=== PATIENT | female | born 1955 | race Caucasian/White ===

== ENCOUNTER → 2018-05-24 12:05 | Outpatient (CLI) | payer BC, SELFPAY ==
[2018-05-24 16:23] LABS: Free T3 2.7 pg/mL (2.18-3.98); T4 Free Direct 0.86 ng/dL (0.76-1.46); Thyroid Stim Hormone (TSH) 1.35 uIU/mL (0.358-3.74)
[2018-05-24 16:34] LABS: Hemoglobin A1c 4.8 % (4.2-6.3)
[2018-05-26 10:52] LABS: DHEA Sulfate 99.9 ug/dL (29.4-220.5)
[2018-05-30 16:43] LABS: HPV Reflexed? NOT INDICATED
--- OUTSIDE RECORDS SUMMARY | 2018-07-29 04:10 | XMS RPT_ITS ---
:1955 Author Organization OHIP Care Team Providers Name Role Phone Chey Winter Admitting Unavailable Chey Winter Attending Unavailable Saldivar, Brendon Primary Care Unavailable Chey iWnter Referring Unavailable Saldivar, Brendon Primary Care Unavailable Becky Flores Admitting Unavailable Becky Flores Attending Unavailable Becky Flores Attending Unavailable Saldivar, Brendon Primary Care Unavailable Saldivar Brendon Attending Unavailable Saldivar, Brendon Primary Care Unavailable Saldivar, Brendon Admitting Unavailable Newbill, Get Mason Admitting Unavailable NewbillGet Attending Unavailable Saldivar, Brendon Primary Care Unavailable Newbill, Get Mason Admitting Unavailable Newbill, Get Mason Attending Unavailable Saldivar, Brendon Primary Care Unavailable Chey Winter Admitting Unavailable Chey Winter Attending Unavailable Saldivar, Brendon Primary Care Unavailable Chey Winter Attending Unavailable PROBLEMS PROBLEMS DATE TYPE CONDITION / CODE ATTENDING STATUS SOURCE 05/28/2018 Unknown Z12.4 - Chey Winter Active [place] Encounter for Community screening for Hospital malignant Repository neoplasm of cervix / Z12.4(ICD-10) PROCEDURES PROCEDURES No Procedure Records FoundRESULTS RESULTS FREE T3 Collected: 05/24/2018 Status: F Source: [facility] TYPE CODE TESTS RESULT OUT OF RANGE REFERENCE UNITS LAB L501.87231 2.18-3.98 pg/mL Normal FREE T3 2.7 Performed By: #### L501.78915, L501.9520, L506.0400 #### [facility] [address] [place], [address] THYROID STIM HORMONE Collected: 05/24/2018 Status: F Source: REN (TSH) 12:10 PM [facility] REPOSITORY TYPE CODE TESTS RESULT OUT OF RANGE REFERENCE UNITS LAB L501.9520 0.358-3.74 uIU/mL Normal TSH 1.35 Performed By: #### L501.53131, L501.9520, L506.0400 #### [facility] [address] [place], [address] T4 FREE DIRECT Collected: 05/24/2018 Status: F Source: REN 12:10 PM [facility] REPOSITORY TYPE CODE TESTS RESULT OUT OF RANGE REFERENCE UNITS LAB L506.0400 0.76-1.46 ng/dL Normal T4 FREE 0.86 DIRECT Performed By: #### L501.83809, L501.9520, L506.0400 #### [facility] [address] [place], [address] CORTISOL SERUM Collected: 05/24/2018 Status: F Source: REN 12:10 PM [facility] REPOSITORY TYPE CODE TESTS RESULT OUT OF RANGE REFERENCE UNITS LAB L509.6000 3.09-22.40 ug/dL Normal CORTISOL 9.40 Result Comment: Adult (AM) 4.30 - 22.40 ug/dL Adult (PM) 3.09 - 16.66 ug/dL Performed By: #### L509.6000 #### [facility] [address] [place], [address] HEMOGLOBIN A1C Collected: 05/24/2018 Status: F Source: REN 12:10 PM [facility] REPOSITORY TYPE CODE TESTS RESULT OUT OF RANGE REFERENCE UNITS LAB L501.9985 4.2-6.3 % Normal HGB A1C 4.8 Performed By: #### L501.9985 #### [facility] [address] [place], [address] DHEA SULFATE Collected: 05/24/2018 Status: F Source: REN 12:10 PM [facility] REPOSITORY Order Comment: Has Patient had Radioactive Injection for X-ray?: N TYPE CODE TESTS RESULT OUT OF RANGE REFERENCE UNITS LAB L3300.1500 29.4-220.5 ug/dL Normal DHEA SULF 99.9 4020 Result Comment: Performed at: [facility] [id number] Front End Developer Designer: Desmond Eduardo PhD, Phone: [phone] Performed By: #### L3300.1500 #### [facility] (refer to report for specific site) refer to report for address and phone number PAP I-G W/RFX HRHPV Collected: 05/24/2018 Status: F Source: REN 11:45 AM [facility] REPOSITORY Order Comment: CYTOLOGY INFORMATION: - CLINICAL INFORMATION: POSTMENOPAUSAL - DATE LMP/MENOPAUSE: - COLLECTION VIAL: Thin Prep Vial - SOLE CUTTER SOURCE: CERVICAL/ENDOCERVICAL - COLLECTION TECHNIQUE: BRUSH/SPATULA Specimen Comment: [id number] Specimen Comment: Source.............Cervix;Endocervix Specimen Comment: Other..............Post Menopausal Specimen Comment: No. of containers..01 ThinPrep Vial TYPE CODE TESTS RESULT OUT OF RANGE REFERENCE UNITS LAB L7400.0800 . Normal DIAGN Comment Result Comment: NEGATIVE FOR INTRAEPITHELIAL LESION OR MALIGNANCY. CELLULAR CHANGES ASSOCIATED WITH ATROPHY ARE PRESENT. LAB L7400.0900 . Normal ADEQ Comment Result Comment: Satisfactory for evaluation. Endocervical component may not be distinguished in cases of atrophy. LAB L7400.1400 . Normal PERFORM Comment Result Comment: Annika Rollins, Service Unit Operator [employer] LAB L7400.2575 . Normal TEST METHOD Comment Result Comment: This liquid based ThinPrep(R) pap test was screened with the use of an image guided system. LAB L7400.2600 . Normal . COMM LAB L7400.2700 . Normal PAPSMR Comment Result Comment: The Pap smear is a screening test designed to aid in the detection of premalignant and malignant conditions of the uterine cervix. It is not a diagnostic procedure and should not be used as the sole means of detecting cervical cancer. Both false-positive and false-negative reports do occur. LAB L7400.2800 . Normal HPV RFLX Comment Result Comment: The HPV DNA reflex criteria were not met with this specimen result therefore, no HPV testing was performed. Performed at: - [facility] [place] [id number] Front End Developer Designer: Kiara Perales MD, Phone: [phone] Performed By: #### L7400.0350 #### [facility] (refer to report for specific site) refer to report for address and phone number CT ABDOMEN/PELVIS W/ Observed: 07/18/2017 Status: F Source: EPISCOPALIAN CONTRAST 7:45 PM [facility] REPOSITORY Exam Date/Time: 07/18/2017 20:12 EDT Reason for Exam: Abdominal Pain;Other (please specify) Report CT ABDOMEN/PELVIS W/ CONTRAST CLINICAL STATEMENT: 62-year-old female with lower abdominal and back pain. COMPARISON: Correlation is made with contrasted CT imaging of the abdomen and pelvis performed on 05/20/2017. TECHNIQUE: CT examination of the abdomen and pelvis following the administration of 100 mL Omnipaque 300 intravenous contrast. ?Coronal and sagittal reformations were performed. Dose reduction techniques were achieved by using automated exposure control and/or adjustment of mA and/or kV according to patient size and/or use of iterative reconstruction technique. FINDINGS: Liver is stable and unremarkable. There is some minimal focal fatty change adjacent to the falciform. A small cyst is noted in the superior aspect of the medial segment. Gallbladder is decompressed. There is no biliary ductal dilatation. Spleen is normal in size and configuration. The pancreas, adrenal glands, and kidneys demonstrate an unremarkable contrasted appearance. The colon is unremarkable. There are a few scattered diverticula along the sigmoid. No acute inflammation is identified. The appendix is again noted to be quite enlarged, measuring up to 1.2 cm in diameter. It was enlarged on previous exam on 05/20/2017 where it measured approximately a centimeter. There actually appears to be some hyperenhancement of the mucosa. There is some mild surrounding inflammatory change. Small bowel is normal in caliber and course. Stomach is decompressed. Uterus and adnexa demonstrate a age-appropriate appearance. There is no mass or adenopathy. No free air or free fluid is present. Bones are unremarkable. There is only some mild atelectasis at the lung bases. IMPRESSION: The appendix is significantly enlarged, measuring up 1.2 cm. This compares to a centimeter on previous imaging. There is some mucosal hyperenhancement present. There is also some new mild surrounding periappendiceal stranding. Similar findings were present on previous imaging 05/20/2017, although slightly more extensive on today's exam. Apparently, the patient previously received intravenous antibiotics. Overall findings suggest recurrent acute appendicitis. NOTE: These findings were discussed with Dr. Becky London at [facility] Exam Date/Time: 07/18/2017 20:12 EDT [facility] 07/18/2017 at 9:01 PM. FINAL REPORT Dictated: 07/19/2017 0:52 am Bruce Goldsmith MD Signed (Electronic Signature): 07/19/2017 0:52 am Signed by: Bruce Goldsmith MD Technologist: RICHARD LONG Collected: 07/18/2017 Status: F Source: EPISCOPALIAN 6:52 PM [facility] REPOSITORY TYPE CODE TESTS RESULT OUT OF RANGE REFERENCE UNITS LAB 21978959(L 70-99 mg/dL OINC) High Glucose Lvl 103 LAB 89653836(L 8.4-10.2 mg/dL OINC) Calcium Normal Lvl 9.6 LAB 36996936(L 136-145 mEq/L OINC) Sodium Normal Lvl 139 LAB 01058304(L 3.5-5.1 mEq/L OINC) Normal Potassium Lvl 3.6 LAB 95322473(L 98-107 mEq/L OINC) Chloride Normal 104 LAB 90376798(L 24.0-30.0 mEq/L OINC) CO2 Normal 26.3 LAB 40219466(L 7-18 mg/dL OINC) BUN Normal 17 LAB 5755195(LO 0.6-1.3 mg/dL INC) Normal Creatinine 0.8 LAB 92145163(L 5.4-30.0 ratio OINC) Normal BUN/Creat Ratio 21.2 Performed By: #### [id number] #### [facility] [place] [address] HEP FUNC PANEL Collected: 07/18/2017 Status: F Source: EPISCOPALIAN 6:52 PM [facility] REPOSITORY TYPE CODE TESTS RESULT OUT OF RANGE REFERENCE UNITS LAB 46376933(L 10-40 Int._Unit/L OINC) Normal ALT 14 LAB 69768336(L 10-42 Int._Unit/L OINC) Normal AST 19 LAB 64173068(L 3.2-5.0 G/DL OINC) Normal Albumin Lvl 4.1 LAB 30485319(L 2.0-4.0 G/DL OINC) Normal Globulin 2.7 LAB 26751673(L 1.1-1.9 ratio OINC) Normal A/G Ratio 1.5 LAB 45808619(L 42-121 Int._Unit/L OINC) Normal Alk Phos 50 LAB 76284398(L .00-.20 mg/dL OINC) Normal Bili Direct .10 LAB 56981279(L OINC) Normal Bili Indirect 0.8 Result Comment: No established ranges available for the Indirect Biliruben. LAB 66447660(LOINC) 0.2-1.0 mg/dL Normal Bili Total 0.9 LAB 57070601(LOINC) 6.4-8.3 G/DL Normal Total Protein 6.8 Performed By: #### [id number] #### [facility] [address] [place] [address] EGFR Collected: 07/18/2017 Status: F Source: EPISCOPALIAN 6:52 [facility] REPOSITORY Order Comment: Order added by Discern Expert. TYPE CODE TESTS RESULT OUT OF RANGE REFERENCE UNITS LAB 51692654(LO mL/min/1.73 INC) m2 Normal eGFR >60 LAB 31678629(LO mL/min/1.73 INC) m2 Normal eGFR AA >60 Performed By: #### [id number] #### [facility] [address] [place] [address] LIPASE LEVEL Collected: 07/18/2017 Status: F Source: EPISCOPALIAN 6:52 [facility] REPOSITORY TYPE CODE TESTS RESULT OUT OF RANGE REFERENCE UNITS LAB 89464160(LO 8-57 U/L INC) Normal Lipase Lvl 19 Performed By: #### [id number] #### [facility] [address] [place] [address] CBC W/ AUTO DIFF Collected: 07/18/2017 Status: F Source: EPISCOPALIAN 6:52 [facility] REPOSITORY TYPE CODE TESTS RESULT OUT OF RANGE REFERENCE UNITS LAB 15551940(L 3.6-11.0 E3/mcL OINC) Normal WBC 9.3 LAB 61317015(L 3.90-5.40 E6/mcL OINC) Normal RBC 4.41 LAB 46512368(L 12.0-16.0 G/DL OINC) Normal Hgb 13.2 LAB 50114386(L 36.0-48.0 % OINC) Normal Hct 38.6 LAB 76175664(L 11.5-14.5 % OINC) Normal RDW 12.5 LAB 67108283(L 27.0-31.0 pg OINC) Normal MCH 30.0 LAB 07730450(L 33.0-37.0 G/DL OINC) Normal MCHC 34.3 LAB 19267316(L 78.0-100.0 fL OINC) Normal MCV 87.6 LAB 37239561(L 7.4-11.0 fL OINC) Normal MPV 8.4 LAB 22394965(L 130-400 E3/mcL OINC) Normal Platelet 148 Performed By: #### [id number] #### [facility] [address] [place] [address] MANUAL DIFF Collected: 07/18/2017 Status: F Source: EPISCOPALIAN 6:52 [facility] REPOSITORY Order Comment: Order Added by Discern Expert. TYPE CODE TESTS RESULT OUT OF RANGE REFERENCE UNITS LAB 39615943(L 37-75 % OINC) High Segs Man 87 LAB 74838791(L 14-48 % OINC) Low Lymph Man 6 LAB 12284503(L 1-11 % OINC) Normal Monocyte Man 5 LAB 81033945(L 0-5 % OINC) Normal Eos Man 0 LAB 17573672(L 0-1 % OINC) Normal Basophil Man 0 LAB 42115289(L % OINC) Normal React Lymph 2 Man LAB 75825408(L OINC) Normal RBC Morph NORMAL Performed By: #### [id number] #### [facility] [address] [place] [address] ZZPLT MORPH Collected: 07/18/2017 Status: F Source: EPISCOPALIAN 6:52 PM [facility] REPOSITORY TYPE CODE TESTS RESULT OUT OF RANGE REFERENCE UNITS LAB 95398885(L OINC) Normal Platelet NORMAL Estimate LAB 47285808(L OINC) Normal Platelet Morph ENLARGED Performed By: #### [id number] #### [facility] [address] [place] [address] .MANUAL ABS Collected: 07/18/2017 Status: F Source: EPISCOPALIAN 6:52 [facility] REPOSITORY Order Comment: Order Added by Discern Expert. TYPE CODE TESTS RESULT OUT OF RANGE REFERENCE UNITS LAB 66191246(L 1.4-6.5 10x3/ OINC) High Segs Abs Man 8.1 LAB 51099436(L 1.2-3.4 10x3/ OINC) Low Lymph Abs Man 0.6 LAB 14718740(L 0.0-0.7 10x3/ OINC) Normal George Abs Man 0.5 LAB 01390045(L 0.0-0.5 10x3/ OINC) Normal Eos Abs Man 0.0 LAB 03395683(L 0.0-0.2 10x3/ OINC) Normal Basophil Abs 0.0 Man Performed By: #### [id number] #### [facility] [address] [place] [address] CRP Collected: 07/18/2017 Status: F Source: EPISCOPALIAN 6:52 [facility] REPOSITORY TYPE CODE TESTS RESULT OUT OF RANGE REFERENCE UNITS LAB 21568715(LO 0.00-0.75 mg/dL INC) High CRP 1.14 Performed By: #### [id number] #### [facility] [address] [place] [address] UA COMPLETE Collected: 07/18/2017 Status: F Source: EPISCOPALIAN 6:49 [facility] REPOSITORY TYPE CODE TESTS RESULT OUT OF REFERENCE UNITS RANGE LAB 29346540(L Yellow OINC) UA Color Normal Straw LAB 43219101(L Clear OINC) UA Clarity Normal Clear LAB 41566982(L Negative OINC) UA Glucose Normal Negative LAB 41226292(L Negative OINC) UA Bili Normal Negative LAB 39267194(L Negative OINC) UA Ketones Normal Negative LAB 07473747(L 1.003-1.030 OINC) UA Spec Normal Grav 1.008 LAB 28361356(L 4.6-8.0 OINC) UA pH Normal 6.0 LAB 48882792(L Negative OINC) UA Protein Normal Negative LAB 30425698(L mg/dL OINC) UA Normal Urobilinogen Negative LAB 06862462(L Negative OINC) UA Nitrite Normal Negative LAB 87072993(L Negative OINC) UA Blood Normal Negative LAB 16067112(L Negative OINC) UA Leuk Est Normal Negative LAB 12361024(L 0-3 /HPF OINC) UA RBC Normal 0-3 LAB 43632578(L 0-5 /HPF OINC) UA WBC Normal 0-5 Performed By: #### [id number] #### MARLENI Urinalysis Automated Subsection [address] [place] [address] MA MAMM SCREEN W/CAD Observed: 06/21/2017 Status: F Source: EPISCOPALIAN IF PERFORMED BILAT 8:14 AM [facility] REPOSITORY Exam Date/Time: 06/21/2017 08:30 EST Reason for Exam: SCREENING Report MA Mamm Screen w/CAD if performed bilat, 06/21/2017 8:14 AM CLINICAL STATEMENT: Screening COMPARISON: 06/20/2016. 03/24/2015,03/07/2014. TECHNIQUE: Standard MLO and CC projections of the right and left breast were obtained on a digital system. Computer-assisted detection was used. FINDINGS: Breast tissue composition: Heterogeneously dense, which may obscure small masses. Grouped punctate calcifications in the lateral left breast are stable from prior. No dominant mass, suspicious microcalcifications, or architectural distortion. CONCLUSION: BI-RADS 2 - Benign, no evidence of malignancy. Normal interval followup is recommended in 12 months. OVERALL ASSESSMENT- BENIGN A letter of notification will be sent to the patient regarding the results. Assessment / Recommendation: 2-1 Normal interval follow-up Breast density: Heterogeneously Dense Recall interval: 012 months FINAL REPORT Dictated: 06/21/2017 10:58 am Silvano Wilde MD Signed (Electronic Signature): 06/21/2017 10:58 am Signed by: Silvano Wilde MD Technologist: MEDARDO Assessment: BI-RADS Category 2-Benign finding Recommendation: Normal interval follow-up ALLERGIES ALLERGIES DATE TYPE / CODE NAME / CODE REACTION SEVERITY SOURCE Drug/972515 No Known Mu-Ism 003(SNCorMatrix Allergies [facility] [place]) System Repository ENCOUNTERS ENCOUNTERS ADMIT/DISCHARGE ACCOUNT NUMBER ADMITTING ENCOUNTER LOCATION SOURCE CLASS 06/01/2018 [id number] Chey Winter [facility] ding:[facility] Repository 05/24/2018 [id number] Ambulatory [facility] ding:WOBLAB Repository 04/03/2018/04/03/20 [id number] [address] [place] [address] Marlon g:QCareRoom: [facility] Room 1 [facility] System Repository 03/27/2018/03/27/20 [id number] [address] [place] [address] Marlon g:[facility] Repository 12/01/2017/12/02/19 [id number] Saldivar, Brendon [address] ding:[facility] Repository racRoom: Room 2 08/15/2017/08/16/19 [id number] [place] [address] uilding:[facility] urgCareRoom: Health System Room 3 Repository 07/18/2017/07/20/[id number] ding:[facility] SRoom: Repository 0315Bed: 06/21/2017/06/21/[id number] Chey [place] [address] ding:[facility] Repository PAYERS PAYERS ENCOUNTER GUARANTOR PAYER SUBSCRIBER SOURCE 06/01/2018 CHEY SANTOSOB: Primary JULISSA R Mu-Ism [id number] Insurance:ANTHEMPolic COWENDOB: [facility] y Number: Effective [id number] System [address] [place] [address] Date:2018-06-[address] Repository [address]Zsv: [id number] [address] [place] [address] Name:Andrez RAMOS [id number]: () [id number], [place] [address]TO: [phone] ([phone] (WP) 05/24/2018 JULISSA R Primary JULISSA R [place] [id number] Insurance:ANTHEMPolic COWENDOB: [address] y Number: [id number] [address]Sru: ([phone]) [id number] Repository [phone] (HP) Date:[id number], [place] [address]MX: 05/24/2018 Secondary NOT GIVENUNK [place] Insurance:SELF PAY [facility] Number: Effective Repository Date:2018-05-24 04/03/2018 CHEY Joseph COWENDOB: Primary JULISSA R Mu-Ism Insurance:1500 COWENDOB: [facility] ANTHEMPolicy Number: [id number] System [address] [place] [address] Effective [address] Repository [address]Jaf: Date:2018-04-[address] [place] [address] [id number] [id number]: (HP) Name:CD:[id number] [address]SE[address] ()Tel: [phone]: ([phone] 03/27/2018 CHEY Joseph COWENDOB: Primary JULISSA R Mu-Ism Insurance:1500 COWENDOB: [facility] ANTHEMPolicy Number: [id number] System [address] [place] [address] Effective [address] Repository [address]Phq: Date:2018-03-[address] [place] [address] [id number]: (HP) Name:CD:[id number] [address]SE[address] (HP)Tel: [phone]: (WP) [phone] 12/01/2017 CHEY Joseph COWENDOB: Primary JULISSA R Mu-Ism Insurance:1500 COWENDOB: [facility] ANTHEMPolicy Number: [id number] System [address] [place] [address] Effective [address] Repository [address]Byq: Date:2017-11-[address] [place] [address] [id number]: (HP) Name:CD:[id number] [address]SE[address] ()Tel: [phone]: (WP) [phone] 08/15/2017 CHEY Joseph COWENDOB: Primary JULISSA R Mu-Ism Insurance:1500 COWENDOB: [facility] ANTHEMPolicy Number: [id number] System [address] [place] [address] Effective [address] Repository [id number]: Date:2017-08-[address] [place] [address] [id number]: (HP) Name:CD:[id number] [address] ()Tel: [phone]: (WP) [phone] 07/18/2017 CHEY Joseph COWENDOB: Primary JULISSA R Mu-Ism Insurance:ANTHEMPolic COWENDOB: [facility] y Number: Effective [id number] System [address] [place] [address] Date:2017-07-[address] Repository [id number]: [id number] [address] [place] [address] Name:Andrez Baker [address] [address]Qpj: () TONIE [address] [address]WP: [phone] ([phone] (WP) 06/21/2017 CHEY Joseph COWENDOB: Primary JULISSA R Mu-Ism [id number] Insurance:ANTHEMPolic COWENDOB: [facility] y Number: Effective [id number] System [address] [place] [address] Date:2017-06-21 [facility] Repository [id number]: [id number] [address] [place] [address] Name:Andrez RAMOS [id number]: () [id number] [address]WP: [phone] ([phone] (WP)
== END ==
PROVIDERS: Visit Provider Obstetrics & Gynecology
DX: Z12.4 Encounter for screening for malignant neoplasm of cervix (principal); R53.83 Other fatigue
CPT/HCPCS: 36415; 82533; 82627; 83036; 84439; 84443; 84481; 88175; 82626; G0145

== ENCOUNTER → 2019-05-28 | Outpatient (CLI) | payer BC, SELFPAY ==
[2019-06-03 14:08] LABS: Age Gdln ACOG Testing 30-65 (.)
[2019-06-03 14:35] LABS: HPV APTIMA, High Risk Negative (Negative); HPV Reflexed? YES, CHARGE PATIENT
== END | disposition home or self-care (01) ==
LOC: LABSPEC 14:45
PROVIDERS: Visit Provider Obstetrics & Gynecology
DX: Z12.4 Encounter for screening for malignant neoplasm of cervix (principal)
CPT/HCPCS: 87624; 88175; G0145